=== PATIENT | male | born 1970 | race Hispanic/Latino ===

== ENCOUNTER 2024-08-27 12:59 | Emergency (ER) | payer SELFPAY ==
[2024-08-27] MEDS ORDERED: HYDROcodone/Acetaminophen 5/325 mg Tablet ONE (14:01)
== END 2024-08-27 14:22 | disposition home or self-care (01) ==
LOC: CSHERS 12:59
DX: M54.41 Lumbago with sciatica, right side (principal); I10 Essential (primary) hypertension; Z55.0 Illiteracy and low-level literacy
CPT/HCPCS: 99283

== ENCOUNTER 2024-09-09 15:20 | Emergency (ER) | payer SELFPAY | END 2024-09-09 18:02 | disposition home or self-care (01) | LOC: CSHERS 15:20 | DX: M25.561 Pain in right knee (principal); I10 Essential (primary) hypertension; E78.5 Hyperlipidemia, unspecified; Z79.899 Other long term (current) drug therapy ==

== ENCOUNTER 2025-06-19 18:18 | Emergency (ER) | payer OTHER ==
[2025-06-19] MEDS ORDERED: Lidocaine/Transparent Dressing 1 EACH KIT ONE (20:57)
== END 2025-06-19 22:38 | disposition home or self-care (01) ==
LOC: CSHERS 18:18
DX: H61.121 Hematoma of pinna, right ear (principal); E78.5 Hyperlipidemia, unspecified; I10 Essential (primary) hypertension; Z79.899 Other long term (current) drug therapy
CPT/HCPCS: 69000